=== PATIENT | female | born 1965 | race Caucasian/White ===

== ENCOUNTER 2017-05-15 22:38 | Emergency (ER) | payer OTHER ==
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
[2017-05-16] MEDS ORDERED: HYDROcodone/Acetaminophen 10/325 mg Tablet ONE (00:12)
== END 2017-05-16 00:32 | disposition home or self-care (01) ==
LOC: ERS 22:38
DX: S00.83XA Contusion of other part of head, initial encounter (principal); S90.32XA Contusion of left foot, initial encounter; E11.9 Type 2 diabetes mellitus without complications; F31.9 Bipolar disorder, unspecified; F41.9 Anxiety disorder, unspecified; F20.9 Schizophrenia, unspecified; F17.210 Nicotine dependence, cigarettes, uncomplicated; Z79.4 Long term (current) use of insulin; Z79.899 Other long term (current) drug therapy; V89.2XXA Person injured in unspecified motor-vehicle accident, traffic, initial encounter

== ENCOUNTER 2019-02-23 14:08 | Emergency (ER) | payer OTHER ==
[2019-02-23 15:02] LABS: Bilirubin Negative (Negative); Blood, Urine Negative (Negative); Clarity Clear (Clear); Glucose, Urine (Dipstick) Normal (Negative); Leukocyte 250 Leu/uL (Negative); Nitrite 2+ (Negative); Protein, Urine (Dipstick) Negative (Neg-Trace); RBC/HPF 0-3 HPF (0-3); Urobilinogen Normal mg/dL (Less than 2); WBC/HPF 21-50 HPF (0-3)
[2019-02-23 15:04] LABS: Bacteria/HPF 1+ HPF (None Seen)
[2019-02-23] MEDS ORDERED: Ketorolac Tromethamine 30 MG/ML VIAL ONE (16:25)
[2019-02-23] MEDS ORDERED: Metoclopramide 10 MG/10 ML UDCUP ONE (16:25)
[2019-02-23] MEDS ORDERED: diphenhydrAMINE 50 MG/ML VIAL ONE (16:25)
[2019-02-23] MEDS ORDERED: Metoclopramide HCl 10 MG/2 ML VIAL ONE (16:25)
[2019-02-23] MEDS ORDERED: cefTRIAXone\\ROCEPHIN 2 GM VIAL ONE (16:25)
[2019-02-23] MEDS ORDERED: diphenhydrAMINE 50 MG/ML VIAL IVP SCH (16:30)
[2019-02-23] MEDS ORDERED: Metoclopramide HCl 10 MG/2 ML VIAL IVP SCH (16:30)
[2019-02-23] MEDS ORDERED: cefTRIAXone\\ROCEPHIN 2 GM in Sodium Chloride 0.9% 100 ML IVPB SCH (16:30)
[2019-02-23] MEDS ORDERED: Ketorolac Tromethamine 30 MG/ML VIAL IVP SCH (16:30)
[2019-02-23] MEDS ORDERED: Sodium Chloride 0.9% 1,000 ML IV SCH (16:30)
[2019-02-23 17:21] LABS: #Basophils 0.1 thou/uL (0.0-0.2); #Eosinphils 0.1 thou/uL (0.0-0.7); #Lymphocytes 2.2 thou/uL (1.20-3.40); #Monocytes 0.3 thou/uL (0.11-0.59); #Neutrophils 3.9 thou/uL (1.40-6.50); %Basophils 0.9 % (0.0-1.0); %Lymphocytes 33.6 % (21.0-51.0); %Neutrophils 59.6 % (42.0-75.0); Hemoglobin 13.6 g/dL (12.0-16.0); Mean Corpuscular HGB CONC 31.8 g/dL (32.0-36.0); Mean Corpuscular Hemoglobin 28.9 pg (27.0-31.0); Mean Corpuscular Volume 90.7 fL (78.0-98.0); Mean Platelet Volume 10.3 fL (7.4-10.4); Platelet Count 153 thou/uL (130-400); RBC Distribution Width 12.5 % (11.5-14.5); Red Blood Cell (RBC) Count 4.72 mill/uL (4.20-5.40); White Blood Cell (WBC) Count 6.5 thou/uL (4.8-10.8)
[2019-02-23 17:35] LABS: ALT (SGPT) 9 U/L (8-55); AST (SGOT) 13 U/L (5-34); Albumin 3.8 g/dL (3.5-5.0); Alkaline Phosphatase 122 U/L (40-150); Anion Gap 14 mmol/L (10-20); BUN (Urea Nitrogen) 10 mg/dL (9.8-20.1); Bilirubin, Total 0.3 mg/dL (0.2-1.2); Calc. Creatinine Clearance 0 mL/min (70-130); Calcium 8.4 mg/dL (7.8-10.44); Carbon Dioxide 19 mmol/L (22-29); Chloride 111 mmol/L (98-107); Estimated GFR-MDRD 75; Globulin 2.4 g/dL (2.4-3.5); Glucose 86 mg/dL (70-105); Lipase 27 U/L (8-78); Protein, Total 6.2 g/dL (6.0-8.3); Sodium 140 mmol/L (136-145)
== END 2019-02-23 16:35 | disposition home or self-care (01) ==
LOC: ERS 14:08
DX: N39.0 Urinary tract infection, site not specified (principal); R51 Headache; E11.9 Type 2 diabetes mellitus without complications; F17.210 Nicotine dependence, cigarettes, uncomplicated; Z79.899 Other long term (current) drug therapy
CPT/HCPCS: 36415; 36416; 80053; 81003; 81015; 82010; 83690; 85025; 87077; 87086; 87186; 96365; 96368; 96375; J0696; J1200; J1885; J2765; J3490